=== PATIENT | female | born 1960 | race Caucasian/White ===

== ENCOUNTER → 2016-03-03 | Outpatient (CLI) | payer OTHER ==
--- NOTE | 2016-03-03 14:17 | MA ---
Screening Digital Mammogram With Tomosynthesis Clinical Indications: Routine screening. Technique: Standard digital cephalocaudal and tomosynthesis mediolateral oblique projections were ob tained. The digital images were processed by the [employer] computer aided detection system. Comparison: 2014, 2013, 2012, 2011, 2010 Breast density: D; The breast tissue is extremely dense. This may lower the sensitivity of mammograph y. Findings: CAD was reviewed. No suspicious findings are identified. Impression: Negative mammogram. BI-RADS 1. Recommendation: Routine screening is recommended in one year, as long as physical examination is logan ign in this patient with extremely dense breast parenchyma. [facility] will send a result letter to the patient. Negative mammography should not preclude additional workup of a clinically suspicious finding. The patient's information is entered into a reminder system with a target due date for her next mammo gram.
== END ==
LOC: FIMAGING 13:12
DX: Z12.31 Encounter for screening mammogram for malignant neoplasm of breast (principal)
CPT/HCPCS: G0202

== ENCOUNTER 2017-02-10 08:38 | Emergency (ER) | payer OTHER ==
[2017-02-10 08:46] VITALS: RESP 16; TEMP 97.7
--- NOTE | 2017-02-10 09:29 | EDPHY ---
HPI/HX/ROS/PE/MDM Narrative: CHIEF COMPLAINT: Head injury HPI: This patient is a non-anticoagulated 53 y/o female complaining of head pain and swelling to the back of her head secondary to a fall earlier today. She slipped on ice this morning while walking her dog and struck the back of her head on cement. She denies loss of consciousness. She endorses immediate dizziness and headache and some back pain. No neck pain. Her entire occipital area is painful and feels swollen and "squishy". She has history of a prior concussion as a child, and her current symptoms feel similar. She takes flax seed oil and fish oil at home, but no daily aspirin and is not otherwise anticoagulated. She denies any further trauma. No fever, recent illness, or further complaints. REVIEW OF SYSTEMS: Aside from elements discussed in the HPI, a comprehensive 10-point review of systems was reviewed and is negative. PMH: Pre-diabetic. SOCIAL HISTORY: . at bedside. Lives in [place]. PHYSICAL EXAM: General:Patient is alert, in no acute distress. Head: Mild contusion, swelling, and tenderness to the occiput ENT:Eyes are normal to inspection. ENT inspection normal. Neck: Normal inspection. Full range of motion. Respiratory:No respiratory distress. Breath sounds normal bilaterally. Cardiovascular: Regular rate and rhythm. Strong peripheral pulses. Normal cap refill. Abdomen:The abdomen is nontender to palpation. There are no peritoneal signs. There are normal bowel sounds. Back: Normal to inspection. No tenderness to palpation. Skin: Normal color. No rash. Warm and dry. Extremities: Normal appearance. Full range of motion. Neuro: Oriented x3. Normal motor function. Normal sensory function. ED Course: 56 y/o female presents with headache secondary to a fall earlier this morning. Exam reveals mild contusion and tenderness to the occiput. Discussed criteria, risks, benefits of CT imaging. Patient would like to proceed with CT to r/o fracture, intracranial hemorrhage, or other acute processes. 10:[address] Aguilar, radiologist. CT head negative for acute processes. 10:32 Reassessed patient. Discussed imaging results. Plan to discharge home in good condition with referral to concussion specialist. Follow up and return precautions discussed. The patient and her are comfortable with this plan. - Data Points Imaging Results: Imaging Impressions Head CT 02/10/17 09:31 Impression: Negative noncontrast CT of the head with no intracranial posttraumatic sequela identified. Results called and discussed with Lul Nicole MD on 02/10/2017 at 10:30 Imaging: Discussed imaging studies w/ inbound call center agent Radiologist General Time Seen by Provider: 02/10/17 09:13 Initial Vital Signs: Initial Vital Signs Temperature (C) 36.5 C 02/10/17 08:42 Heart Rate 83 02/10/17 08:42 Respiratory Rate 16 02/10/17 08:42 Blood Pressure 154/84 H 02/10/17 08:42 O2 Sat (%) 96 02/10/17 08:42 O2 Delivery Mode Room Air Allergies/Adverse Reactions: GUINEA PIGS Allergy (Intermediate, Uncoded 02/10/17 08:40) SNEEZING SUN Allergy (Uncoded 02/10/17 08:40) Rash Home Medications: Medication Instructions Recorded Multivitamins [Tab-A-Aida (OTC)] 1 each PO 08/11/11 Wales-3/Dha/Epa/Fish Oil [Fish Oil] mg PO 08/11/11 Zolpidem Tartrate [Ambien 10 mg] 10 mg PO HS 08/11/11 Calcium 03/12/13 Flax Seed Oil 03/12/13 Glucophage 03/12/13 Gabapentin 02/10/17 Levothyroxine 02/10/17 Departure - Departure Disposition: Home, Routine, Self-Care Clinical Impression: Concussion Qualifiers: Encounter type: initial encounter Loss of consciousness presence/duration: without LOC Qualified Code(s): S06.0X0A - Concussion without loss of consciousness, initial encounter Condition: Good Instructions: Concussion (ED) Additional Instructions: 1. Follow-up with your primary care doctor this week. We have referred you to a concussion specialist, please follow up with her as well for continued management of your symptoms. 2. Brain rest - try to avoid TV, video games, cell phones, or reading while symptoms persist. You may reintroduce activities as tolerated. 3. Physical rest - avoid activities that could result in further head injury or that require prolonged attention until your symptoms completely resolve. 4. You may take Tylenol or Ibuprofen as directed below as needed for pain. 5. Return to the Emergency Department for severe headache, vomiting, vision changes, confusion, fever or other concerns. Adult Pain & Fever Control: We recommend Acetaminophen (Tylenol) and Ibuprofen (Motrin,Advil) for pain and fever control. When fever is high or pain severe, both drugs can be used at the same time, but at different intervals. Please note the time differences. Your dose is: Acetaminophen 650mg every 4 to 6 hours Ibuprofen 600mg every 6-8 hours with food Note: do not take Acetaminophen with Hydrocodone (Vicodin, Lortab) or Oxycodone (Percocet). These medications also contain Acetaminophen. No more than 3000mg of Acetaminophen should be taken in 24 hours (for an adult). Referrals: Luly Blackman MD [Primary Care Provider] - As per Instructions Ángela Santana MD [Medical Doctor] - As per Instructions Report Scribed for: Lul Nicole Report Scribed by: Emily Storm Date of Report: 02/10/17 Time of Report: 09:35 Physician Review and Approval Statement: Portions of this note were transcribed by an ED scribe. I personally performed the history, physical exam, and medical decision making; and confirm the accuracy of the information in the transcribed note.
[2017-02-10 10:53] VITALS: BP 114/88; PULSE 70; O2SAT 95
== END 2017-02-10 10:50 | disposition home or self-care (01) ==
DX: S06.0X0A Concussion without loss of consciousness, initial encounter (principal); W01.198A Fall on same level from slipping, tripping and stumbling with subsequent striking against other object, initial encounter; Y99.8 Other external cause status; Y93.K1 Activity, walking an animal

== ENCOUNTER → 2017-03-04 | Outpatient (CLI) | payer OTHER | LOC: FIMAGING 09:10 | PROVIDERS: ATTEND Obstetrics & Gynecology | DX: Z12.31 Encounter for screening mammogram for malignant neoplasm of breast (principal) ==

== ENCOUNTER → 2018-03-06 | Outpatient (CLI) | payer OTHER | LOC: FIMAGING 11:03 | PROVIDERS: ATTEND Family Medicine | DX: Z12.31 Encounter for screening mammogram for malignant neoplasm of breast (principal); Z13.820 Encounter for screening for osteoporosis; M85.89 Other specified disorders of bone density and structure, multiple sites ==